=== PATIENT | male | born 1975 | race Two or more races ===

== ENCOUNTER 2023-09-27 10:01 | Emergency (ER) | payer MEDICAID, OTHER ==
[~2023-09-27] VITALS: Ht 185.4 cm; Wt 91.0 kg
[2023-09-27 10:33] LABS: Basophils # (auto) 0 10 ^3/uL (0-0.2); Basophils % (auto) 0.6 % (0.0-2.0); Eosinophils # (auto) 0.1 10 ^3/uL (0-0.8); Eosinophils % (auto) 1.2 % (0.0-7.0); Hematocrit 46.6 % (41.0-53.0); Hemoglobin 15.2 g/dL (13.5-17.5); Lymphocytes % (auto) 27.7 % (10.0-50.0); Mean Corpuscular Hemoglobin 27.3 pg (28.0-32.0); Mean Corpuscular Hgb Conc. 32.6 g/dL (32.0-36.0); Mean Corpuscular Volume 83.9 fL (80.0-100.0); Monocytes # (auto) 0.6 10 ^3/uL (0-1.3); Monocytes % (auto) 7.8 % (0.0-12.0); Neutrophils # (auto) 4.4 10 ^3/uL (1.6-8.6); Neutrophils % (auto) 62.7 % (37.0-80.0); Red Blood Cells 5.56 10^6/uL (4.5-5.90); Red Cell Distribution Width 13.6 % (11.8-14.3)
[2023-09-27 11:12] LABS: Alanine Aminotransferase 26 U/L (7-40); Albumin 4.6 g/dL (3.2-4.8); Alkaline Phosphatase 63 U/L (46-116); Anion Gap 2 (5-15); Aspartate Aminotransferase 30 U/L (13-40); BUN/Creatinine Ratio 8.9 (10.0-20.0); Bilirubin, Total 0.9 mg/dL (0.2-1.0); Blood Urea Nitrogen 9 mg/dL (9-23); Calcium 9.9 mg/dL (8.5-10.1); Carbon Dioxide 29 mmol/L (20-30); Chloride 108 mmol/L (98-107); Glucose 87 mg/dL (74-106); Potassium 4.2 mmol/L (3.5-5.1); Sodium 139 mmol/L (136-145); Total Protein 7.4 g/dL (5.7-8.2)
[2023-09-27] MEDS ORDERED: METH4PAK PO (14:46)
[2023-09-27] MEDS ORDERED: AMOX500T3 PO (14:46)
[2023-09-27 14:50] VITALS: BP 113/76; PULSE 60; RESP 18; TEMP 97.6; O2SAT 97
== END 2023-09-27 14:51 | disposition home or self-care (01) ==
LOC: ER 10:01
DX: J20.9 Acute bronchitis, unspecified (principal); R07.89 Other chest pain
CPT/HCPCS: 36415; 71045; 80053; 84484; 85025; 85379; 93005

== ENCOUNTER 2024-10-28 20:30 | Emergency (ER) | payer MEDICAID ==
[~2024-10-28] VITALS: Ht 185.4 cm; Wt 90.0 kg
[~2024-10-28 20:30] MED LIST: AMOX500T3 PO; METH4PAK PO
[2024-10-28 20:45] VITALS: BP 117/77; RESP 19; TEMP 99.1; O2SAT 97
[2024-10-28 21:39] VITALS: PULSE 104
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
--- NOTE | 2024-10-29 05:48 | ECG ---
[facility] Test Date: 2024-10-28 Test Time: 20:39:14 Pat Name: TONY WISEMAN Department: ED Room: Gender: M Student Assistant: : [id number] Requested By: KELLY ANGLIN Order Number: [id number] Reading MD: Mayo Hutchison Measurements Intervals [place] Rate: 72 P: 62 NV: 144 QRS: 5 QRSD: 93 T: 19 QT: 394 QTc: 432 Interpretive Statements Sinus rhythm Low voltage, precordial leads Electronically Signed On 10-30-2024 19:04:05 PDT by Mayo Hutchison Please click the below link to view image of tracing.
== END 2024-10-28 21:36 | disposition left against medical advice (07) ==
LOC: ER 20:30
DX: R07.89 Other chest pain (principal); Z79.899 Other long term (current) drug therapy
CPT/HCPCS: 93005